=== PATIENT | male | born 1960 | race African-American/Black ===

== ENCOUNTER 2018-06-22 09:34 | Inpatient (IN) | payer OTHER ==
[~2018-06-22] VITALS: Ht 177.8 cm; Wt 72.6 kg
[~2018-06-22 09:34] MED LIST: ASPI-1079 PO; ATOR10TA PO; GLYB5TAB4; INSULIN; METO25TA6 PO; OMEP20CA10; OMEP20CA4 PO
[2018-06-22] MEDS ORDERED: SODIUM CHLORIDE 0.9% 1,000 ML IV ONE (10:05)
[2018-06-22] MEDS ORDERED: ONDANSETRON HCL 4MG/2ML INJ IV STA (10:05)
[2018-06-22 10:25] LABS: BASOPHILS % 0.3 % (0.0-2.0); EOSINOPHILS % 0.5 % (0.0-5.0); HEMATOCRIT. 37.9 % (42.0-52.0); HEMOGLOBIN. 12.6 g/dL (14.0-18.0); LYMPHOCYTES % 8.5 % (20.0-50.0); MEAN CORPUSCULAR HEMOGLOBIN 31.5 pg (28.0-32.0); MEAN CORPUSCULAR VOLUME 95.1 fL (80.0-94.0); MEAN PLATELET VOLUME 9.1 fl (7.4-10.4); MONOCYTES % 3.5 % (2.0-8.0); NEUTROPHILS % 87.2 % (40.0-76.0); PLATELET 164 x1000/uL (130-400); RED BLOOD CELL COUNT 3.99 mill/uL (4.7-6.1); RED CELL DISTRIBUTION WIDTH 12.5 % (11.6-14.6)
[2018-06-22 10:32] LABS: CHLORIDE 102 mEq/L (98-107)
[2018-06-22 10:34] LABS: PROTHROMBIN TIME 10.2 sec (9.1-11.1)
[2018-06-22] MEDS ORDERED: METOCLOPRAMIDE HCL 10MG/2ML VIAL IV ONE (11:15)
[2018-06-22 12:00] VITALS: BP 164/77
[2018-06-22 14:14] VITALS: BP 164/77
[2018-06-22] MEDS ORDERED: POTASSIUM CHLORIDE 20MEQ TABLET SR PO SCH (15:15)
[2018-06-22] MEDS ORDERED: DEXTROSE 50% WATER 50ML SYRINGE IV PRN (15:15)
[2018-06-22] MEDS ORDERED: ONDANSETRON HCL 4MG/2ML INJ IV PRN (15:15)
[2018-06-22] MEDS: SODIUM CHLORIDE 0.45% 1,000 ML IV SCH (15:56)
[2018-06-22 16:00] VITALS: BP 157/87
[2018-06-22] MEDS: BLOOD SUGAR DIAGNOSTIC STRIP TEST SCH ×2 (17:01→21:49)
[2018-06-22] MEDS: INSULIN LISPRO 100 UNITS/ML SUBCUT SCH ×2 (17:30→22:08)
[2018-06-22 17:53] LABS: CLARITY URINE CLEAR (CLEAR); COLOR URINE YELLOW (YELLOW); KETONES URINE 1+ (NEGATIVE); LEUKOCYTE ESTERASE URINE NEGATIVE (NEGATIVE); NITRITE URINE NEGATIVE (NEGATIVE); OCCULT BLOOD URINE 1+ (NEGATIVE); PH URINE 7.5 (4.5-8.0); PROTEIN URINE 2+ (NEGATIVE); SPECIFIC GRAVITY URINE 1.012 (1.005-1.030); UROBILINOGEN URINE 0.2 E.U./dL (0.2-1.0)
[2018-06-22 18:02] LABS: *AMPHETAMINES SCREEN URINE NEGATIVE (NEGATIVE)
[2018-06-22 18:03] LABS: *BARBITURATES SCREEN URINE NEGATIVE (NEGATIVE); *BENZODIAZEPINES SCREEN URINE NEGATIVE (NEGATIVE); *COCAINE SCREEN URINE NEGATIVE (NEGATIVE); METHADONE URINE SCREEN NEGATIVE (NEGATIVE); OPIATES URINE SCREEN NEGATIVE (NEGATIVE)
[2018-06-22 18:04] LABS: CANNABINOID URINE SCREEN PRESUMTIVE POSITIVE (NEGATIVE); PHENCYCLIDINE URINE SCREEN NEGATIVE (NEGATIVE)
[2018-06-22 20:00] VITALS: BP 157/88
[2018-06-22] MEDS: PANTOPRAZOLE SODIUM 40 MG/VIAL IV SCH (21:43)
[2018-06-22] MEDS: AMLODIPINE 5MG TABLET PO SCH (21:47)
[2018-06-23] VITALS: BP 126/75
[2018-06-23] MEDS: METOCLOPRAMIDE HCL 10MG/2ML VIAL IV SCH ×3 (00:22→11:22)
[2018-06-23] MEDS: SODIUM CHLORIDE 0.45% 1,000 ML IV SCH ×2 (00:22→11:24)
[2018-06-23 04:00] VITALS: BP 109/70
[2018-06-23] MEDS: BLOOD SUGAR DIAGNOSTIC STRIP TEST SCH ×2 (06:44→11:30)
[2018-06-23] MEDS: INSULIN LISPRO 100 UNITS/ML SUBCUT SCH ×2 (07:50→12:21)
[2018-06-23 07:51] LABS: BASOPHILS % 0.5 % (0.0-2.0); EOSINOPHILS % 0.3 % (0.0-5.0); HEMATOCRIT. 41.7 % (42.0-52.0); LYMPHOCYTES % 12.7 % (20.0-50.0); MEAN CORPUSCULAR HEMOGLOBIN 31.5 pg (28.0-32.0); MEAN PLATELET VOLUME 9.2 fl (7.4-10.4); MONOCYTES % 7.4 % (2.0-8.0); NEUTROPHILS % 79.1 % (40.0-76.0); PLATELET 172 x1000/uL (130-400); RED BLOOD CELL COUNT 4.44 mill/uL (4.7-6.1); RED CELL DISTRIBUTION WIDTH 12.5 % (11.6-14.6)
[2018-06-23 08:00] VITALS: BP 103/60
[2018-06-23 08:08] LABS: CHLORIDE 98 mEq/L (98-107)
[2018-06-23] MEDS: AMLODIPINE 5MG TABLET PO SCH (08:31)
[2018-06-23] MEDS: PANTOPRAZOLE SODIUM 40 MG/VIAL IV SCH (08:31)
[2018-06-23] MEDS ORDERED: METO-293 MT (11:28)
[2018-06-23] MEDS ORDERED: AMLO5TAB88 PO (11:28)
[2018-06-23 12:00] VITALS: BP 127/76
[2018-06-23 12:02] VITALS: BP 127/76
== END 2018-06-23 13:53 | disposition home or self-care (01) | DRG 74 ==
LOC: ER 10:24 → 6EST 12:51 → EDBEDREQ 12:53 → EDBEDREQTM 12:53 → ENRESERV 13:00 → EDBEDREQ 13:21
PROVIDERS: ADMIT Internal Medicine; ATTEND Internal Medicine
DX: E11.43 Type 2 diabetes mellitus with diabetic autonomic (poly)neuropathy (principal); K31.84 Gastroparesis; K21.9 Gastro-esophageal reflux disease without esophagitis; D64.9 Anemia, unspecified; E87.6 Hypokalemia; F17.210 Nicotine dependence, cigarettes, uncomplicated; I10 Essential (primary) hypertension; Z82.49 Family history of ischemic heart disease and other diseases of the circulatory system; Z79.82 Long term (current) use of aspirin; Z79.899 Other long term (current) drug therapy; Z90.49 Acquired absence of other specified parts of digestive tract
CPT/HCPCS: 36415; 74018; 80048; 80305; 82962; 93005; 96361; 96374; 96375; 99285; C9113; J1815; J2405; J2765; J7030